=== PATIENT | male | born 1990 | race African-American/Black ===

== ENCOUNTER 2017-08-04 23:02 | Emergency (ER) | payer MEDICAID, OTHER ==
[~2017-08-04] VITALS: Ht 182.9 cm; Wt 91.0 kg
[~2017-08-04 23:02] MED LIST: AMOX500T2; IBUPROFEN
[2017-08-04 23:17] VITALS: BP 124/65
== END 2017-08-05 00:40 | disposition home or self-care (01) ==
LOC: ER 08-05 00:02
DX: J20.9 Acute bronchitis, unspecified (principal); F12.10 Cannabis abuse, uncomplicated; F17.210 Nicotine dependence, cigarettes, uncomplicated; Z91.018 Allergy to other foods; Z71.6 Tobacco abuse counseling
CPT/HCPCS: 99283

== ENCOUNTER 2017-09-17 04:01 | Emergency (ER) | payer OTHER ==
[~2017-09-17] VITALS: Ht 182.9 cm; Wt 82.0 kg
[2017-09-17 04:28] VITALS: BP 112/66
== END 2017-09-17 05:42 | disposition left against medical advice (07) ==
LOC: ER 04:49
DX: Z53.21 Procedure and treatment not carried out due to patient leaving prior to being seen by health care provider (principal)